=== PATIENT | female | born 1970 | race Two or more races ===

== ENCOUNTER 2020-04-25 11:24 | Emergency (ER) | payer OTHER | END 2020-04-25 12:19 | disposition home or self-care (01) | LOC: JVIRT 11:24 | DX: Z03.818 Encounter for observation for suspected exposure to other biological agents ruled out (principal) | CPT/HCPCS: C9803; G2012-GT; Q3014-GT; U0003 ==

== ENCOUNTER 2021-09-26 09:51 | Day surgery (SDC) | payer OTHER ==
[2021-09-23 09:45] VITALS: BMI 30.1
[2021-09-26] MEDS ORDERED: PROPOFOL 20 ML ONE ×2 (10:57)
[2021-09-26 11:46] VITALS: BP 130/72; PULSE 70; TEMP 97.9
== END 2021-09-26 12:18 | disposition home or self-care (01) ==
LOC: FASU-ENDO 09:51
PROVIDERS: ATTEND Internal Medicine Gastroenterology
PROC: 0DBN8ZX Excision of Sigmoid Colon, Via Natural or Artificial Opening Endoscopic, Diagnostic (ICD-10-PCS; principal; 2021-09-26 11:03)
DX: Z12.11 Encounter for screening for malignant neoplasm of colon (principal); D12.5 Benign neoplasm of sigmoid colon; K57.30 Diverticulosis of large intestine without perforation or abscess without bleeding
CPT/HCPCS: 84703; 88305-TC